=== PATIENT | female | born 2005 | race Two or more races ===

== ENCOUNTER 2024-06-19 10:15 | Emergency (ER) | payer OTHER ==
[~2024-06-19] VITALS: Ht 165.1 cm; Wt 81.6 kg
[~2024-06-19 10:15] MED LIST: CEFDINIR300 MG PO; CIPRO HC OTIC S10 ML OT; CORTISPORIN EAR10 M2
[2024-06-19] MEDS ORDERED: DEXAMETHASONE SODIUM PHOSPHATE 4 MG/ML VIAL IV SCH (11:15)
[2024-06-19] MEDS ORDERED: KETOROLAC TROMETHAMINE 30 MG VIAL IV ONE (11:15)
[2024-06-19] MEDS ORDERED: KETOROLAC TROMETHAMINE 60 MG VIAL IM ONE (12:15)
== END 2024-06-19 14:16 | disposition home or self-care (01) ==
LOC: ER 10:17 → EMR PED 10:28 → ER 10:28 → EMR PED 14:16
DX: M62.838 Other muscle spasm (principal); M54.2 Cervicalgia

== ENCOUNTER 2025-01-12 12:24 | Emergency (ER) | payer OTHER ==
[~2025-01-12] VITALS: Ht 165.1 cm; Wt 84.4 kg
[2025-01-12] MEDS ORDERED: RELAFEN DS1000 MG PO (13:14)
[2025-01-12 15:17] LABS: BASO % 0.3 % (0.1-1.2); EOS # 0.04 (0.04-0.54); EOS % 0.3 % (0.7-7.0); HEMATOCRIT 40.8 % (34.1-44.9); HEMOGLOBIN 14.6 g/dL (11.2-15.7); LYMPH # 4.01 (1.18-3.74); LYMPH % 26.6 % (19.3-53.1); MEAN CORPUSCULAR HEMOGLOBIN 29.2 pg (25.6-32.2); NEUT # 9.72 (1.56-6.13); NEUT % 64.4 % (34.0-71.1); PLATELET COUNT 450 K/uL (163-369); RED CELL DISTRIBUTION WIDTH 16.5 % (11.6-14.4)
[2025-01-12 16:49] LABS: COVID-19 AG NEGATIVE (NEGATIVE)
[2025-01-12 16:51] LABS: INFLUENZA A AG NEGATIVE (NEGATIVE)
[2025-01-12] MEDS ORDERED: PEPCID AC20 MG PO (16:56)
[2025-01-12] MEDS ORDERED: OSEL75CA PO (16:56)
== END 2025-01-12 17:20 | disposition home or self-care (01) ==
LOC: EMR PED 12:24
PROVIDERS: Emergency Medicine Pediatric Emergency Medicine
DX: J10.1 Influenza due to other identified influenza virus with other respiratory manifestations (principal); Z20.822 Contact with and (suspected) exposure to COVID-19